=== PATIENT | female | born 1955 | race Caucasian/White ===

== ENCOUNTER 2019-06-13 16:58 | Emergency (ER) | payer MEDICAID ==
[~2019-06-13] VITALS: Ht 165.1 cm; Wt 73.5 kg
[2019-06-13] MEDS ORDERED: FLUORESCEIN SOD 1 MG TEST STRIP EACHEYE ONE (19:00)
[2019-06-13] MEDS ORDERED: TETRACAINE HCL 0.5% OPTH(EYE) SOLN 4ML RIGHTEYE ONE (19:00)
[2019-06-13 22:59] VITALS: BP 175/88
== END 2019-06-13 20:19 | disposition short-term general hospital (02) ==
LOC: ER 16:58
DX: H33.21 Serous retinal detachment, right eye (principal)
CPT/HCPCS: 70450

== ENCOUNTER 2020-03-27 11:21 | Emergency (ER) | payer MEDICAID ==
[~2020-03-27] VITALS: Ht 165.1 cm; Wt 74.8 kg
[2020-03-27 15:58] LABS: Basophils # (auto) 0.1 10 ^3/uL (0-0.2); Basophils % (auto) 0.9 % (0.0-2.0); Eosinophils # (auto) 0.2 10 ^3/uL (0-0.8); Eosinophils % (auto) 2.9 % (0.0-7.0); Hematocrit 34.3 % (36.0-46.0); Hemoglobin 11.9 g/dL (12.2-16.2); Lymphocytes # (auto) 1.9 10 ^3/uL (0.4-5.4); Lymphocytes % (auto) 26.3 % (10.0-50.0); Mean Corpuscular Hemoglobin 32.1 pg (28.0-32.0); Mean Corpuscular Hgb Conc. 34.6 g/dL (32.0-36.0); Mean Corpuscular Volume 92.7 fL (80.0-100.0); Monocytes # (auto) 0.7 10 ^3/uL (0-1.3); Monocytes % (auto) 9.6 % (0.0-12.0); Neutrophils # (auto) 4.3 10 ^3/uL (1.6-8.6); Neutrophils % (auto) 60.3 % (37.0-80.0); Nucleated Red Blood Cells % 0.2 %; Platelet Count (auto) 327 10^3/uL (140-450); Red Cell Distribution Width 13.1 % (11.8-14.3); White Blood Cell 7.1 10^3/uL (4.4-10.8)
[2020-03-27 16:15] LABS: Albumin 4.7 g/dL (3.4-5.0); Calcium 9.4 mg/dL (8.5-10.1); Potassium 3.9 mmol/L (3.5-5.1)
[2020-03-27 16:18] LABS: INR 1.02 (0.9-1.15); Partial Thromboplastin Time 28.3 sec (23.0-31.2)
[2020-03-27 16:19] LABS: BUN/Creatinine Ratio 20.8; Bilirubin, Total 0.4 mg/dL (0.2-1.0); Total Protein 8.1 g/dL (6.4-8.2)
[2020-03-27 17:38] VITALS: BP 141/75
== END 2020-03-27 17:49 | disposition home or self-care (01) ==
LOC: ER 11:21
DX: H11.31 Conjunctival hemorrhage, right eye (principal)
CPT/HCPCS: 36415; 70450; 80053; 85025; 85610; 85652; 85730

== ENCOUNTER 2021-01-01 13:11 | Emergency (ER) | payer MEDICAID ==
[~2021-01-01] VITALS: Ht 165.1 cm; Wt 72.6 kg
[2021-01-01 17:51] LABS: Basophils # (auto) 0.1 10 ^3/uL (0-0.2); Eosinophils # (auto) 0.2 10 ^3/uL (0-0.8); Eosinophils % (auto) 2.4 % (0.0-7.0); Hematocrit 33.8 % (36.0-46.0); Hemoglobin 11.7 g/dL (12.2-16.2); Lymphocytes # (auto) 2.4 10 ^3/uL (0.4-5.4); Mean Corpuscular Hemoglobin 32.3 pg (28.0-32.0); Mean Corpuscular Hgb Conc. 34.7 g/dL (32.0-36.0); Mean Corpuscular Volume 92.8 fL (80.0-100.0); Monocytes # (auto) 0.7 10 ^3/uL (0-1.3); Neutrophils # (auto) 5.5 10 ^3/uL (1.6-8.6); Neutrophils % (auto) 61.6 % (37.0-80.0); Red Blood Cells 3.64 10^6/uL (4.0-5.20); Red Cell Distribution Width 14.1 % (11.8-14.3); White Blood Cell 8.9 10^3/uL (4.4-10.8)
[2021-01-01 18:08] LABS: Albumin 3.9 g/dL (3.4-5.0); BUN/Creatinine Ratio 16.9; Calcium 8.6 mg/dL (8.5-10.1); Potassium 3.8 mmol/L (3.5-5.1)
[2021-01-01 18:11] LABS: Bilirubin, Total 0.3 mg/dL (0.2-1.0); Total Protein 7.6 g/dL (6.4-8.2)
[2021-01-01 19:25] VITALS: BP 141/74
[2021-01-01] MEDS ORDERED: ACETAMINOPHEN 325 MG TAB PO ONE (20:15)
== END 2021-01-01 20:58 | disposition home or self-care (01) ==
LOC: ER 13:11
DX: R60.0 Localized edema (principal); E11.9 Type 2 diabetes mellitus without complications; I10 Essential (primary) hypertension
CPT/HCPCS: 36415; 71045; 73630; 80053; 83880; 85025; 93005

== ENCOUNTER 2021-01-08 16:05 | Inpatient (IN) | payer MEDICARE, MEDICAID ==
[~2021-01-08] VITALS: Ht 165.1 cm; Wt 70.5 kg
[2021-01-08 20:10] LABS: Basophils # (auto) 0.1 10 ^3/uL (0-0.2); Basophils % (auto) 0.4 % (0.0-2.0); Eosinophils # (auto) 0 10 ^3/uL (0-0.8); Hemoglobin 12.2 g/dL (12.2-16.2); Mean Corpuscular Hemoglobin 32.6 pg (28.0-32.0); Mean Corpuscular Volume 93.2 fL (80.0-100.0); Monocytes # (auto) 1.4 10 ^3/uL (0-1.3); Monocytes % (auto) 7.9 % (0.0-12.0); Neutrophils # (auto) 14.8 10 ^3/uL (1.6-8.6); Neutrophils % (auto) 85.7 % (37.0-80.0); Nucleated Red Blood Cells % 0.1 %; Red Blood Cells 3.75 10^6/uL (4.0-5.20); White Blood Cell 17.3 10^3/uL (4.4-10.8)
[2021-01-08 20:21] LABS: Alanine Aminotransferase 17 U/L (13-56); Anion Gap 9 (5-15); Aspartate Aminotransferase 11 U/L (15-37); BUN/Creatinine Ratio 15.8; Blood Urea Nitrogen 16 mg/dL (7-18); Calcium 9.3 mg/dL (8.5-10.1); Carbon Dioxide 22 mmol/L (21-32); Chloride 102 mmol/L (98-107); GFR African American 71 mL/min; GFR Non-African American 58 mL/min; Glucose 187 mg/dL (74-106); Magnesium 1.7 mg/dL (1.6-2.6); Potassium 3.6 mmol/L (3.5-5.1); Sodium 133 mmol/L (136-145)
[2021-01-08 20:26] LABS: Alkaline Phosphatase 62 U/L (45-117); Bilirubin, Total 0.7 mg/dL (0.2-1.0); Total Protein 8.5 g/dL (6.4-8.2)
[2021-01-08] MEDS ORDERED: ACETAMINOPHEN 325 MG TAB PO ONE (21:15)
[2021-01-08] MEDS ORDERED: IOHEXOL 300 MG/ML 100ML BOTTLE IJ ONE (23:38)
[2021-01-09] MEDS ORDERED: ACETAMINOPHEN 325 MG TAB PO ONE (04:00)
[2021-01-09] MEDS ORDERED: cefTRIAXone 1GM/50ML D5W 50 ML IV ONE (04:15)
[2021-01-09] MEDS ORDERED: NITROGLYCERIN 0.4 MG SL TAB SL PRN (04:45)
[2021-01-09] MEDS ORDERED: MORPHINE SULFATE INJECTION 2 MG/2 ML SYRG IV PRN (04:45)
[2021-01-09] MEDS ORDERED: DEXTROSE (50%) 50ML SYRG IV PRN (04:45)
[2021-01-09] MEDS ORDERED: MORPHINE SULFATE 4 MG/ML SYR/VIAL IV PRN (04:45)
[2021-01-09 06:53] LABS: Basophils # (auto) 0 10 ^3/uL (0-0.2); Basophils % (auto) 0.2 % (0.0-2.0); Eosinophils # (auto) 0 10 ^3/uL (0-0.8); Eosinophils % (auto) 0.1 % (0.0-7.0); Hematocrit 32.6 % (36.0-46.0); Hemoglobin 11.5 g/dL (12.2-16.2); Lymphocytes # (auto) 0.9 10 ^3/uL (0.4-5.4); Lymphocytes % (auto) 5.4 % (10.0-50.0); Mean Corpuscular Hemoglobin 32.9 pg (28.0-32.0); Mean Corpuscular Hgb Conc. 35.2 g/dL (32.0-36.0); Mean Corpuscular Volume 93.4 fL (80.0-100.0); Monocytes # (auto) 1.1 10 ^3/uL (0-1.3); Monocytes % (auto) 6.9 % (0.0-12.0); Neutrophils # (auto) 13.9 10 ^3/uL (1.6-8.6); Neutrophils % (auto) 87.4 % (37.0-80.0); Red Blood Cells 3.49 10^6/uL (4.0-5.20); Red Cell Distribution Width 13.7 % (11.8-14.3); White Blood Cell 15.9 10^3/uL (4.4-10.8)
[2021-01-09 07:10] LABS: Albumin 3.7 g/dL (3.4-5.0); BUN/Creatinine Ratio 21.7; Potassium 3.6 mmol/L (3.5-5.1)
[2021-01-09 07:13] LABS: Bilirubin, Total 0.6 mg/dL (0.2-1.0); Total Protein 8.2 g/dL (6.4-8.2)
[2021-01-09] MEDS: ACCU-CHEK COMFORT CURVE STRIP VI SCH ×4 (09:13→21:01)
[2021-01-09] MEDS: InsuLIN REG 1unit/0.01ml Soln (100units/ml) SC SCH ×3 (09:13→17:00)
[2021-01-09] MEDS: SODIUM CHLORIDE 0.9% 1,000 ML IV SCH ×2 (09:34→21:01)
[2021-01-09] MEDS: MEROPENEM 1GM IVPB 100 ML IV SCH ×3 (09:34→21:01)
[2021-01-09] MEDS: ENOXAPARIN SOD 40 MG/0.4 ML SYRINGE SC SCH (10:00)
[2021-01-09] MEDS: ONDANSETRON HCL 4 MG/2 ML VIAL IV PRN (10:04)
[2021-01-09] MEDS: FAMOTIDINE (10MG/ML) 2ML VL IV SCH (11:52)
[2021-01-09] MEDS ORDERED: LACTULOSE 20Gm/30ML SOLN PO PRN (16:45)
[2021-01-09 18:00] VITALS: BP 131/77
[2021-01-09] MEDS ORDERED: LISI20TA28 PO (19:56)
[2021-01-09] MEDS ORDERED: MONT10TA42 PO (19:56)
[2021-01-09] MEDS ORDERED: ALLO100T PO (19:56)
[2021-01-09] MEDS ORDERED: FERR325T20 PO (19:56)
[2021-01-09] MEDS ORDERED: ATEN-60 PO (19:56)
[2021-01-09] MEDS ORDERED: FENO160T8 PO (19:56)
[2021-01-09] MEDS ORDERED: ACET-1304 PO (19:56)
[2021-01-09 19:57] VITALS: BP 131/77
[2021-01-09] MEDS: ACETAMINOPHEN 325 MG TAB PO PRN (20:01)
[2021-01-09 22:00] VITALS: BP 108/53
[2021-01-09] MEDS ORDERED: InsuLIN REG 1unit/0.01ml Soln (100units/ml) SC SCH (22:00)
[2021-01-10] MEDS: ACETAMINOPHEN 325 MG TAB PO PRN (03:37)
[2021-01-10 05:00] VITALS: BP 110/54
[2021-01-10 06:00] LABS: Basophils # (auto) 0 10 ^3/uL (0-0.2); Basophils % (auto) 0.4 % (0.0-2.0); Eosinophils # (auto) 0 10 ^3/uL (0-0.8); Eosinophils % (auto) 0.1 % (0.0-7.0); Hematocrit 29.3 % (36.0-46.0); Hemoglobin 10.2 g/dL (12.2-16.2); Lymphocytes # (auto) 0.9 10 ^3/uL (0.4-5.4); Lymphocytes % (auto) 6.9 % (10.0-50.0); Mean Corpuscular Volume 91.4 fL (80.0-100.0); Monocytes # (auto) 1.1 10 ^3/uL (0-1.3); Monocytes % (auto) 8.5 % (0.0-12.0); Neutrophils # (auto) 10.7 10 ^3/uL (1.6-8.6); Neutrophils % (auto) 84.1 % (37.0-80.0); Red Cell Distribution Width 13.6 % (11.8-14.3); White Blood Cell 12.7 10^3/uL (4.4-10.8)
[2021-01-10] MEDS: MEROPENEM 1GM IVPB 100 ML IV SCH ×3 (06:28→21:35)
[2021-01-10 06:31] LABS: Potassium 3.7 mmol/L (3.5-5.1)
[2021-01-10 06:44] LABS: Albumin 2.9 g/dL (3.4-5.0); BUN/Creatinine Ratio 22.4; Bilirubin, Total 0.5 mg/dL (0.2-1.0); Calcium 8.9 mg/dL (8.5-10.1); Total Protein 7.4 g/dL (6.4-8.2)
[2021-01-10] MEDS: ACCU-CHEK COMFORT CURVE STRIP VI SCH ×4 (06:49→21:35)
[2021-01-10] MEDS: InsuLIN REG 1unit/0.01ml Soln (100units/ml) SC SCH ×4 (06:49→21:58)
[2021-01-10 07:28] LABS: Urine Bacteria NONE SEEN /hpf (None Seen); Urine Blood Negative /uL (Negative); Urine Specific Gravity 1.011 (1.001-1.035); Urine WBC 62 /hpf (0 - 5)
[2021-01-10 08:29] VITALS: BP_SYST 125; BP_SYST 90; BP_DIAS 59; BP_DIAS 74
[2021-01-10] MEDS: HYDROcodone-ACET 5/325MG TAB PO PRN ×2 (09:07→17:10)
[2021-01-10] MEDS: FAMOTIDINE (10MG/ML) 2ML VL IV SCH (11:07)
[2021-01-10] MEDS: ENOXAPARIN SOD 40 MG/0.4 ML SYRINGE SC SCH (11:07)
[2021-01-10 13:00] VITALS: BP 115/73
[2021-01-10] MEDS: SODIUM CHLORIDE 0.9% 1,000 ML IV SCH (14:23)
[2021-01-10] MEDS ORDERED: DEXTROSE (50%) 50ML SYRG IV PRN (15:15)
[2021-01-10 17:00] VITALS: BP 129/71
[2021-01-10] MEDS: DOCUSATE SOD 100 MG CAP PO SCH (21:35)
[2021-01-10 22:00] VITALS: BP 109/52
[2021-01-11] MEDS: ONDANSETRON HCL 4 MG/2 ML VIAL IV PRN (01:20)
[2021-01-11 05:00] VITALS: BP_SYST 116; BP_SYST 135; BP_DIAS 67; BP_DIAS 68
[2021-01-11 05:37] LABS: Basophils # (auto) 0 10 ^3/uL (0-0.2); Basophils % (auto) 0.6 % (0.0-2.0); Eosinophils # (auto) 0.1 10 ^3/uL (0-0.8); Hematocrit 28.2 % (36.0-46.0); Hemoglobin 10.1 g/dL (12.2-16.2); Lymphocytes # (auto) 1.2 10 ^3/uL (0.4-5.4); Lymphocytes % (auto) 16.8 % (10.0-50.0); Mean Corpuscular Hemoglobin 32.9 pg (28.0-32.0); Mean Corpuscular Hgb Conc. 35.7 g/dL (32.0-36.0); Mean Corpuscular Volume 92.1 fL (80.0-100.0); Monocytes # (auto) 0.8 10 ^3/uL (0-1.3); Monocytes % (auto) 10.7 % (0.0-12.0); Neutrophils # (auto) 5.2 10 ^3/uL (1.6-8.6); Neutrophils % (auto) 70.9 % (37.0-80.0); Red Blood Cells 3.07 10^6/uL (4.0-5.20); Red Cell Distribution Width 13.5 % (11.8-14.3); White Blood Cell 7.3 10^3/uL (4.4-10.8)
[2021-01-11 06:03] LABS: Potassium 3.6 mmol/L (3.5-5.1)
[2021-01-11 06:15] LABS: Calcium 8.8 mg/dL (8.5-10.1)
[2021-01-11 06:18] LABS: % Iron Saturation 20.6 % (15-50)
[2021-01-11] MEDS: MEROPENEM 1GM IVPB 100 ML IV SCH (06:22)
[2021-01-11] MEDS: ACCU-CHEK COMFORT CURVE STRIP VI SCH ×4 (06:49→22:03)
[2021-01-11] MEDS: SODIUM CHLORIDE 0.9% 1,000 ML IV SCH ×2 (06:50→22:03)
[2021-01-11] MEDS: InsuLIN REG 1unit/0.01ml Soln (100units/ml) SC SCH ×4 (06:50→22:00)
[2021-01-11 08:27] VITALS: BP 145/79
[2021-01-11] MEDS: DOCUSATE SOD 100 MG CAP PO SCH ×3 (10:00→22:03)
[2021-01-11] MEDS: FAMOTIDINE (10MG/ML) 2ML VL IV SCH (10:09)
[2021-01-11] MEDS: ENOXAPARIN SOD 40 MG/0.4 ML SYRINGE SC SCH (10:09)
[2021-01-11] MEDS: ACETAMINOPHEN 325 MG TAB PO PRN ×2 (12:00→18:50)
[2021-01-11] MEDS ORDERED: levoFLOXacin 750MG 150 ML IV ONE (12:45)
[2021-01-11 12:49] VITALS: BP 112/66
[2021-01-11] MEDS ORDERED: FLORASTOR (S. BOULARDII) 250 MG CAP PO ONE (13:48)
[2021-01-11 16:43] VITALS: BP 109/67
[2021-01-11 22:00] VITALS: BP 137/76
[2021-01-12 04:56] VITALS: BP 122/66
[2021-01-12] MEDS: HYDROcodone-ACET 5/325MG TAB PO PRN (05:10)
[2021-01-12] MEDS: InsuLIN REG 1unit/0.01ml Soln (100units/ml) SC SCH ×3 (06:41→18:00)
[2021-01-12] MEDS: ACCU-CHEK COMFORT CURVE STRIP VI SCH ×3 (06:42→18:00)
[2021-01-12 07:04] LABS: Basophils # (auto) 0.1 10 ^3/uL (0-0.2); Basophils % (auto) 0.6 % (0.0-2.0); Eosinophils # (auto) 0.1 10 ^3/uL (0-0.8); Eosinophils % (auto) 1.2 % (0.0-7.0); Hematocrit 32.7 % (36.0-46.0); Hemoglobin 11.4 g/dL (12.2-16.2); Lymphocytes # (auto) 1.2 10 ^3/uL (0.4-5.4); Lymphocytes % (auto) 12.5 % (10.0-50.0); Mean Corpuscular Hemoglobin 32.1 pg (28.0-32.0); Mean Corpuscular Hgb Conc. 34.8 g/dL (32.0-36.0); Monocytes # (auto) 0.9 10 ^3/uL (0-1.3); Monocytes % (auto) 9.8 % (0.0-12.0); Neutrophils # (auto) 7.2 10 ^3/uL (1.6-8.6); Neutrophils % (auto) 75.9 % (37.0-80.0); Red Blood Cells 3.56 10^6/uL (4.0-5.20); Red Cell Distribution Width 13.7 % (11.8-14.3); White Blood Cell 9.5 10^3/uL (4.4-10.8)
[2021-01-12 07:20] LABS: Potassium 3.8 mmol/L (3.5-5.1)
[2021-01-12 09:00] VITALS: BP 157/90
[2021-01-12] MEDS ORDERED: levoFLOXacin 750MG 150 ML IV SCH (10:00)
[2021-01-12] MEDS ORDERED: FLORASTOR (S. BOULARDII) 250 MG CAP PO SCH (10:00)
[2021-01-12] MEDS: DOCUSATE SOD 100 MG CAP PO SCH (10:16)
[2021-01-12] MEDS: ENOXAPARIN SOD 40 MG/0.4 ML SYRINGE SC SCH (10:16)
[2021-01-12] MEDS: FAMOTIDINE (10MG/ML) 2ML VL IV SCH (10:16)
[2021-01-12] MEDS ORDERED: SACC250C PO (14:09)
[2021-01-12] MEDS ORDERED: LEVO750T8 PO (14:09)
[2021-01-12] MEDS ORDERED: DOCU-94 PO (14:09)
[2021-01-12] MEDS: SODIUM CHLORIDE 0.9% 1,000 ML IV SCH (16:05)
== END 2021-01-12 19:15 | disposition home or self-care (01) | DRG 872 ==
LOC: ER 16:05 → OVERFLOW 01-09 04:49 → WEST WING 01-09 19:04
PROVIDERS: ADMIT Nurse Practitioner Family; ATTEND Internal Medicine
DX: A41.51 Sepsis due to Escherichia coli [E. coli] (principal); E87.1 Hypo-osmolality and hyponatremia; J98.11 Atelectasis; N10 Acute pyelonephritis; E11.21 Type 2 diabetes mellitus with diabetic nephropathy; K76.89 Other specified diseases of liver; D63.8 Anemia in other chronic diseases classified elsewhere; N83.9 Noninflammatory disorder of ovary, fallopian tube and broad ligament, unspecified; E11.65 Type 2 diabetes mellitus with hyperglycemia; N83.201 Unspecified ovarian cyst, right side; N18.9 Chronic kidney disease, unspecified; E78.5 Hyperlipidemia, unspecified; Z20.822 Contact with and (suspected) exposure to COVID-19; E11.22 Type 2 diabetes mellitus with diabetic chronic kidney disease; I12.9 Hypertensive chronic kidney disease with stage 1 through stage 4 chronic kidney disease, or unspecified chronic kidney disease; K59.00 Constipation, unspecified; M10.9 Gout, unspecified; N39.41 Urge incontinence; Z80.1 Family history of malignant neoplasm of trachea, bronchus and lung; Z80.3 Family history of malignant neoplasm of breast
CPT/HCPCS: 36415; 71045; 74177; 80048; 80053; 80061; 81001; 82962; 83036; 83540; 83550; 83605; 83690; 83735; 84132; 84443; 84484; 85025; 86304; 87040; 87077; 87086; 87088; 87186; 87426; 96365; 96375; 97116; 97163; 97530; G0378; J0696; J1815; J1956; J2185; J2405; J3490; J7060

== ENCOUNTER 2022-10-28 16:25 | Emergency (ER) | payer OTHER ==
[~2022-10-28] VITALS: Ht 160 cm; Wt 65.0 kg
[~2022-10-28 16:25] MED LIST: ACET-1304 PO; ALLO100T PO; DOCU-94 PO; FENO160T PO; FERR325T20 PO; LEVO750T8 PO; LISI20TA56 PO; MONT-8 PO; SACC250C PO
[2022-10-28 16:59] VITALS: BP 198/114
== END 2022-10-28 20:35 | disposition left against medical advice (07) ==
LOC: ER 16:25 → EDBD 16:25 → ER 20:35
DX: M25.532 Pain in left wrist (principal); Z53.21 Procedure and treatment not carried out due to patient leaving prior to being seen by health care provider

== ENCOUNTER 2023-02-18 16:39 | Emergency (ER) | payer OTHER ==
[~2023-02-18] VITALS: Ht 152.4 cm; Wt 68.1 kg
[2023-02-18 16:39] VITALS: BP 184/118; PULSE 110; RESP 16; O2SAT 96
[2023-02-18 17:33] LABS: Basophils # (auto) 0.1 10 ^3/uL (0-0.2); Basophils % (auto) 1.2 % (0.0-2.0); Eosinophils # (auto) 0.1 10 ^3/uL (0-0.8); Eosinophils % (auto) 1.9 % (0.0-7.0); Hematocrit 37.1 % (36.0-46.0); Hemoglobin 12.6 g/dL (12.2-16.2); Lymphocytes % (auto) 25.6 % (10.0-50.0); Mean Corpuscular Hemoglobin 30.5 pg (28.0-32.0); Mean Corpuscular Hgb Conc. 33.9 g/dL (32.0-36.0); Mean Corpuscular Volume 90.1 fL (80.0-100.0); Monocytes # (auto) 0.4 10 ^3/uL (0-1.3); Monocytes % (auto) 5.2 % (0.0-12.0); Neutrophils # (auto) 5.2 10 ^3/uL (1.6-8.6); Neutrophils % (auto) 66.1 % (37.0-80.0); Red Blood Cells 4.12 10^6/uL (4.0-5.20); Red Cell Distribution Width 14.3 % (11.8-14.3); White Blood Cell 7.8 10^3/uL (4.4-10.8)
[2023-02-18 17:42] LABS: Albumin 4.8 g/dL (3.2-4.8); Alkaline Phosphatase 85 U/L (46-116); Anion Gap 6 (5-15); Aspartate Aminotransferase < 8 U/L (13-40); BUN/Creatinine Ratio 17.5 (10.0-20.0); Blood Urea Nitrogen 11 mg/dL (9-23); Calcium 9.9 mg/dL (8.7-10.4); Carbon Dioxide 26 mmol/L (20-30); Chloride 105 mmol/L (98-107); Glucose 107 mg/dL (74-106); Potassium 3.8 mmol/L (3.5-5.1); Sodium 137 mmol/L (136-145)
[2023-02-18 17:43] LABS: Bilirubin, Total 0.4 mg/dL (0.2-1.0); Total Protein 8.4 g/dL (5.7-8.2)
[2023-02-18 18:06] LABS: Alanine Aminotransferase < 9 U/L (7-40)
[2023-02-18] MEDS ORDERED: LORazepam 0.5 MG TAB PO ONE (19:45)
[2023-02-18] MEDS ORDERED: ACETAMINOPHEN 325 MG TAB PO ONE (19:45)
[2023-02-18] MEDS ORDERED: ENALAPRIL MALEATE 10 MG TAB PO ONE (19:45)
== END 2023-02-18 21:15 | disposition left against medical advice (07) ==
LOC: ER 16:39 → EDBD 16:39 → ER 21:15
DX: F41.9 Anxiety disorder, unspecified (principal); I10 Essential (primary) hypertension; E11.9 Type 2 diabetes mellitus without complications; Z79.899 Other long term (current) drug therapy
CPT/HCPCS: 36415; 70450; 71045; 80053; 83880; 84443; 85025

== ENCOUNTER 2023-07-24 16:16 | Emergency (ER) | payer OTHER ==
[~2023-07-24] VITALS: Ht 165.1 cm; Wt 63.6 kg
[2023-07-24 16:54] VITALS: BP 195/111; PULSE 125; RESP 18; O2SAT 96
== END 2023-07-24 17:21 | disposition left against medical advice (07) ==
LOC: EDBD 16:16 → ER 16:16
DX: R51.9 Headache, unspecified (principal); Z53.21 Procedure and treatment not carried out due to patient leaving prior to being seen by health care provider

== ENCOUNTER 2023-08-08 14:28 | Emergency (ER) | payer OTHER, MEDICAID ==
[~2023-08-08] VITALS: Ht 165.1 cm; Wt 85.0 kg
[2023-08-08 15:39] LABS: Basophils # (auto) 0.1 10 ^3/uL (0-0.2); Basophils % (auto) 0.7 % (0.0-2.0); Eosinophils # (auto) 0.2 10 ^3/uL (0-0.8); Eosinophils % (auto) 2.1 % (0.0-7.0); Hematocrit 38.1 % (36.0-46.0); Hemoglobin 12.7 g/dL (12.2-16.2); Lymphocytes # (auto) 1.5 10 ^3/uL (0.4-5.4); Lymphocytes % (auto) 20.2 % (10.0-50.0); Mean Corpuscular Hemoglobin 29.9 pg (28.0-32.0); Mean Corpuscular Hgb Conc. 33.3 g/dL (32.0-36.0); Mean Corpuscular Volume 89.6 fL (80.0-100.0); Monocytes # (auto) 0.5 10 ^3/uL (0-1.3); Monocytes % (auto) 6.5 % (0.0-12.0); Neutrophils # (auto) 5.2 10 ^3/uL (1.6-8.6); Neutrophils % (auto) 70.5 % (37.0-80.0); Nucleated Red Blood Cells % 0.1 %; Red Blood Cells 4.25 10^6/uL (4.0-5.20); Red Cell Distribution Width 13.7 % (11.8-14.3); White Blood Cell 7.4 10^3/uL (4.4-10.8)
[2023-08-08 15:46] LABS: Urine WBC None Seen /hpf (0 - 5)
[2023-08-08 15:49] LABS: Chloride 107 mmol/L (98-107); Potassium 4.1 mmol/L (3.5-5.1); Sodium 140 mmol/L (136-145)
[2023-08-08 15:50] LABS: Anion Gap 5 (5-15); Carbon Dioxide 28 mmol/L (20-30)
[2023-08-08 15:51] LABS: Calcium 9.6 mg/dL (8.5-10.1)
[2023-08-08 15:53] LABS: Urine Bacteria NONE SEEN /hpf (None Seen); Urine Blood Negative /uL (Negative); Urine Clarity Clear (Clear); Urine Color Colorless (Yellow); Urine Protein, UAD Negative (Negative); Urine Specific Gravity 1.006 (1.001-1.035); Urine Urobilinogen Normal (Negative)
[2023-08-08 15:55] LABS: BUN/Creatinine Ratio 32.7 (10.0-20.0); Blood Urea Nitrogen 18 mg/dL (9-23); Glucose 91 mg/dL (74-106)
[2023-08-08 19:25] VITALS: BP 161/83; PULSE 86; RESP 18; TEMP 98.7; O2SAT 97
== END 2023-08-08 19:39 | disposition home or self-care (01) ==
LOC: ER 14:28
DX: I16.0 Hypertensive urgency (principal); E11.9 Type 2 diabetes mellitus without complications; Z79.899 Other long term (current) drug therapy
CPT/HCPCS: 36415; 71045; 80048; 81001; 82962; 84484; 85025; 93005

== ENCOUNTER 2023-09-17 21:47 | Emergency (ER) | payer OTHER ==
[~2023-09-17] VITALS: Ht 167.6 cm; Wt 68.0 kg
[2023-09-17 22:04] VITALS: BP 161/107; PULSE 113; RESP 18; O2SAT 97
[2023-09-17 22:28] LABS: Basophils # (auto) 0.1 10 ^3/uL (0-0.2); Basophils % (auto) 0.9 % (0.0-2.0); Eosinophils # (auto) 0.3 10 ^3/uL (0-0.8); Eosinophils % (auto) 3.1 % (0.0-7.0); Hematocrit 36.7 % (36.0-46.0); Lymphocytes # (auto) 1.8 10 ^3/uL (0.4-5.4); Lymphocytes % (auto) 16.4 % (10.0-50.0); Mean Corpuscular Hemoglobin 29.9 pg (28.0-32.0); Mean Corpuscular Hgb Conc. 32.8 g/dL (32.0-36.0); Monocytes # (auto) 0.8 10 ^3/uL (0-1.3); Monocytes % (auto) 7.5 % (0.0-12.0); Neutrophils % (auto) 72.1 % (37.0-80.0); Red Blood Cells 4.03 10^6/uL (4.0-5.20); Red Cell Distribution Width 14.1 % (11.8-14.3)
[2023-09-17 22:46] LABS: Alanine Aminotransferase 11 U/L (7-40); Albumin 4.7 g/dL (3.2-4.8); Alkaline Phosphatase 82 U/L (46-116); Anion Gap 4 (5-15); Aspartate Aminotransferase 17 U/L (13-40); BUN/Creatinine Ratio 20.3 (10.0-20.0); Bilirubin, Total 0.5 mg/dL (0.2-1.0); Blood Urea Nitrogen 14 mg/dL (9-23); Calcium 10.2 mg/dL (8.7-10.4); Carbon Dioxide 25 mmol/L (20-30); Chloride 111 mmol/L (98-107); Glucose 151 mg/dL (74-106); Magnesium 1.8 mg/dL (1.6-2.6); Potassium 3.4 mmol/L (3.5-5.1); Sodium 140 mmol/L (136-145); Total Protein 7.7 g/dL (5.7-8.2)
[2023-09-17 23:07] LABS: INR 1.03 (0.9-1.15); Partial Thromboplastin Time 31.8 SEC (24.5-34.5); Prothrombin Time 10.8 sec (9.3-11.8)
[2023-09-17 23:22] LABS: Urine Bacteria None Seen /hpf (None Seen)
[2023-09-17 23:39] LABS: Urine Blood Negative /uL (Negative); Urine Clarity Clear (Clear); Urine Color Yellow (Yellow); Urine Mucus FEW (None Seen); Urine Protein, UAD TRACE (Negative); Urine Specific Gravity 1.023 (1.001-1.035); Urine Urobilinogen Normal (Negative); Urine WBC 1 /hpf (0 - 5); Urine pH 5.5 (5.0-9.0)
== END 2023-09-18 00:42 | disposition home or self-care (01) ==
LOC: EDBD 21:47 → ER 21:47
DX: R07.89 Other chest pain (principal); I10 Essential (primary) hypertension; E11.9 Type 2 diabetes mellitus without complications; R11.2 Nausea with vomiting, unspecified; Z79.2 Long term (current) use of antibiotics; Z79.899 Other long term (current) drug therapy
CPT/HCPCS: 36415; 80053; 81001; 83735; 83880; 84484; 85025; 85610; 85730; 93005